=== PATIENT | female | born 1950 | race Caucasian/White ===

== ENCOUNTER 2024-02-15 10:43 | Outpatient (CLI) | payer MEDICARE | END 2024-02-15 10:44 | disposition home or self-care (01) | LOC: CSHMAMMO 10:43 | PROVIDERS: ATTEND Family Medicine | DX: Z12.31 Encounter for screening mammogram for malignant neoplasm of breast (principal); Z85.3 Personal history of malignant neoplasm of breast; Z98.890 Other specified postprocedural states | CPT/HCPCS: 77063; 77067 ==